=== PATIENT | male | born 1995 | race Caucasian/White ===

== ENCOUNTER 2019-01-27 03:29 | Emergency (ER) | payer OTHER ==
[2019-01-27] MEDS ORDERED: KETOROLAC 15 MG/1 ML SDV IVP ONE (03:35)
[2019-01-27] MEDS ORDERED: NS 1,000 ML IV ONE (03:35)
[2019-01-27] MEDS ORDERED: ONDANSETRON 4 MG/2 ML VIAL IVP ONE (03:35)
--- NOTE | 2019-01-27 03:37 | EDPHY ---
H & P Time Seen by Provider: 01/27/19 03:33 HPI/ROS: Chief Complaint: Flank pain, groin pain, vomiting HPI: 23-year-old male with a history of depression had sudden onset of right- sided flank pain radiating to his testicle approximately 15 min ago. This occurred while he was at work. He has had some nausea vomiting. Pain is an 8/ 10. There are no aggravating or alleviating factors. He is unable to find a comfortable position. Has never had similar symptoms before. No fevers or chills. No urinary urgency or frequency. Is otherwise been in his usual state of health. ROS: 10 systems were reviewed and were negative except those elements noted in the HPI. PMH: Depression Social History: Positive smoking, occasional alcohol Family History: non-contributory Physical Exam: Gen: Awake, Alert, No Distress HEENT: Nose: no rhinorrhea Eyes: PERRLA, EOMI Mouth: Moist mucosa Neck: Supple, no JVD Chest: nontender, lungs clear to auscultation Heart: S1, S2 normal, no murmur Abd: Soft, non-tender, no guarding Back: no CVA tenderness, no midline tenderness Ext: no edema, non-tender Skin: no rash Neuro: CN II-XII intact, Sensation grossly intact, Strength 5/5 in bilateral upper and lower extremities Constitutional: Initial Vital Signs Temperature (C) 36.4 C 01/27/19 03:35 Heart Rate 95 01/27/19 03:35 Respiratory Rate 16 01/27/19 03:35 Blood Pressure 141/80 H 01/27/19 03:35 O2 Sat (%) 96 01/27/19 03:35 O2 Delivery Mode Room Air Allergies/Adverse Reactions: No Known Allergies Allergy (Unverified 01/27/19 03:37) Home Medications: Medication Instructions Recorded Hydrocodone/Acetaminophen 1 - 2 each PO Q4-6PRN PRN #10 01/27/19 [Hydrocodon-Acetaminophen 5-325] tablet Tamsulosin HCl 0.4 mg PO DAILY #10 cap 01/27/19 Medical Decision Making - Diagnostics Imaging Results: Abdominal and pelvic CT without contrast History: Right-sided pain Comparison: None Findings: Clear lung bases. Fatty liver. Unremarkable spleen, gallbladder, pancreas and adrenals. 2 mm nonobstructing right renal calculus. 4 mm right UVJ calculus causing moderate right hydronephrosis. Unremarkable appendix. No significant bowel abnormality. No free fluid or acute inflammatory stranding. Impression: 4 mm right UVJ calculus causing moderate right hydronephrosis. 2 mm nonobstructing right renal calculus. ELECTRONICALLY SIGNED BY: Joao Belle MD January 27, 2019 4:13:27 AM MDT ED Course/Re-evaluation: Patient has a noted kidney stone. Pain is resolved after Toradol, Dilaudid and lidocaine drip. Patient will be discharged with tamsulosin, urine strainer, follow up with primary care physician, return for any concerns. - Data Points Laboratory Results: Laboratory Results 01/27/19 03:40 01/27/19 03:40 01/27/19 01/27/19 01/27/19 05:31 03:40 03:40 WBC 15.50 10^3/uL H 10^3/uL (3.80-9.50) RBC 5.71 10^6/uL 10^6/uL (4.40-6.38) Hgb 18.0 g/dL H g/dL (13.7-17.5) Hct 50.3 % % (40.0-51.0) MCV 88.1 fL fL (81.5-99.8) MCH 31.5 pg pg (27.9-34.1) MCHC 35.8 g/dL g/dL (32.4-36.7) RDW 12.5 % % (11.5-15.2) Plt Count 296 10^3/uL 10^3/uL (150-400) MPV 11.6 fL fL (8.7-11.7) Neut % (Auto) 59.9 % % (39.3-74.2) Lymph % (Auto) 28.6 % % (15.0-45.0) [place] % (Auto) 9.6 % % (4.5-13.0) Eos % (Auto) 1.0 % % (0.6-7.6) Baso % (Auto) 0.5 % % (0.3-1.7) Nucleat RBC Rel Count 0.0 % % (0.0-0.2) Absolute Neuts (auto) 9.27 10^3/uL H 10^3/uL (1.70-6.50) Absolute Lymphs (auto) 4.44 10^3/uL H 10^3/uL (1.00-3.00) Absolute Monos (auto) 1.49 10^3/uL H 10^3/uL (0.30-0.80) Absolute Eos (auto) 0.16 10^3/uL 10^3/uL (0.03-0.40) Absolute Basos (auto) 0.08 10^3/uL 10^3/uL (0.02-0.10) Absolute Nucleated RBC 0.00 10^3/uL 10^3/uL (0-0.01) Immature Gran % 0.4 % % (0.0-1.1) Immature Gran # 0.06 10^3/uL 10^3/uL (0.00-0.10) Sodium 140 mEq/L mEq/L (135-145) Potassium 3.8 mEq/L mEq/L (3.5-5.2) Chloride 103 mEq/L mEq/L (97-110) Carbon Dioxide 18 mEq/l L mEq/l (22-31) Anion Gap 19 mEq/L H mEq/L (6-14) BUN 15 mg/dL mg/dL (7-23) Creatinine 1.0 mg/dL mg/dL (0.7-1.3) Estimated GFR > 60 Glucose 104 mg/dL H mg/dL (70-100) Calcium 10.1 mg/dL mg/dL (8.5-10.4) Urine Color YELLOW Urine Appearance CLEAR Urine pH 8.0 H (5.0-7.5) Ur Specific [place] 1.016 (1.002-1.030) Urine Protein NEGATIVE (NEGATIVE) Urine Ketones NEGATIVE (NEGATIVE) Urine Blood 2+ H (NEGATIVE) Urine Nitrate NEGATIVE (NEGATIVE) Urine Bilirubin NEGATIVE (NEGATIVE) Urine Urobilinogen NEGATIVE EU EU (0.2-1.0) Ur Leukocyte Esterase NEGATIVE (NEGATIVE) Urine RBC Pending Urine WBC Pending Ur Epithelial Cells Pending Urine Glucose NEGATIVE (NEGATIVE) Medications Given: Discontinued Medications Hydromorphone HCl (Dilaudid) 0.5 mg IVP EDNOW ONE Stop: 01/27/19 04:01 Last Admin: 01/27/19 04:03 Dose: 0.5 mg Sodium Chloride (Ns) 1,000 mls @ 0 mls/hr IV ONCE ONE; Wide Open PRN Reason: Protocol Stop: 01/27/19 03:36 Last Admin: 01/27/19 03:39 Dose: 1,000 mls Lidocaine HCl 150 mg/ Sodium (Chloride) 115 mls @ 600 mls/hr IV EDNOW ONE Stop: 01/27/19 04:36 Last Admin: 01/27/19 04:37 Dose: 115 mls Ketorolac Tromethamine (Toradol) 15 mg IVP EDNOW ONE Stop: 01/27/19 03:36 Last Admin: 01/27/19 03:39 Dose: 15 mg Ondansetron HCl (Zofran) 4 mg IVP EDNOW ONE Stop: 01/27/19 03:36 Last Admin: 01/27/19 03:39 Dose: 4 mg Departure - Departure Disposition: Home, Routine, Self-Care Clinical Impression: Kidney stone Condition: Fair Instructions: Kidney Stones (ED) Additional Instructions: Take the tamsulosin daily as prescribed to help facilitate passage of the stone. Take ibuprofen, 600 mg every 8 hr. You may alternate with acetaminophen, 1000 mg every 8 hr. For severe pain you may take hydrocodone with acetaminophen in place of the acetaminophen. Strain your urine and collect the stone and taken to her primary care physician for analysis. Follow up with primary care physician in 3-4 days for further evaluation. Referrals: NORA HIRSCH [Other] - As per Instructions Prescriptions: Hydrocodone/Acetaminophen [Hydrocodon-Acetaminophen 5-325] 1 - 2 each PO Q4- 6PRN PRN #10 tablet PRN Reason: Pain, Severe Tamsulosin HCl 0.4 mg PO DAILY #10 cap
[2019-01-27 03:47] LABS: PLATELET COUNT 296 10^3/uL (150-400)
[2019-01-27] MEDS ORDERED: HYDROmorphONE/DILAUDID 1 MG/ML INJ IVP ONE (04:00)
[2019-01-27] MEDS ORDERED: LIDOCAINE 1% 150 MG in NS 100 ML IV ONE (04:25)
[2019-01-27] MEDS ORDERED: TAMSULOSIN HCL 0.4 MG CAP PO ONE (05:40)
[2019-01-27 05:57] VITALS: BP 151/82
== END 2019-01-27 05:56 | disposition home or self-care (01) ==
DX: N13.2 Hydronephrosis with renal and ureteral calculous obstruction (principal); E86.9 Volume depletion, unspecified
CPT/HCPCS: 96374; J1170; J1885; J2405